=== PATIENT | female | born 1940 | race Caucasian/White ===

== ENCOUNTER 2016-10-28 12:23 | Emergency (ER) | payer OTHER ==
[~2016-10-28] VITALS: Ht 162.6 cm; Wt 73.5 kg
--- NOTE | 2016-10-28 13:12 | PHYS DOC ---
Past Medical History Past Medical History: COPD Past Surgical History: No Surgical History Alcohol Use: None Drug Use: None Adult General Chief Complaint Chief Complaint: MULTIPLE COMPLAINTS HPI HPI Patient is a 76 year old female who presents with shortness of breath and wheezing. She states pressure 2 weeks ago she felt she had influenza with body aches nonproductive cough. She states she feels short of breath when she lays flat and has a dry hacking cough. She denies any chest pain other than when she coughs she has a burning sensation. She denies any nausea vomiting or diarrhea. She has a history of smoking but stopped in 2008 and smoked 50 years prior to that. She states she's been told she might have COPD in the past. Review of Systems Review of Systems Constitutional: Denies fever or chills [] Eyes: Denies change in visual acuity, redness, or eye pain [] HENT: Denies nasal congestion or sore throat [] Respiratory: Positive for cough and shortness of breath [] Cardiovascular: No additional information not addressed in HPI [] GI: Denies abdominal pain, nausea, vomiting, bloody stools or diarrhea [] : Denies dysuria or hematuria [] Musculoskeletal: Denies back pain or joint pain [] Integument: Denies rash or skin lesions [] Neurologic: Denies headache, focal weakness or sensory changes [] Endocrine: Denies polyuria or polydipsia [] Current Medications Current Medications Current Medications Medications (Trade) Dose Ordered Sig/Vidal Start Time Stop Time Status Last Admin Dose Admin Albuterol/ Ipratropium (Duoneb) 3 ml 1X ONCE 10/28/16 13:45 10/28/16 13:46 DC 10/28/16 13:54 3 ML Methylprednisolone Sodium Succinate (Solu-Medrol 125mg Vial) 125 mg 1X ONCE 10/28/16 13:45 10/28/16 13:46 DC 10/28/16 14:25 125 MG Allergies Allergies Allergies Coded Allergies Type Severity Reaction Last Updated Verified sulfacetamide Adverse Reaction Intermediate N/V 10/28/16 Yes Physical Exam Physical Exam Constitutional: Well developed, well nourished, no acute distress, non-toxic appearance. [] HENT: Normocephalic, atraumatic, bilateral external ears normal, oropharynx moist, no oral exudates, nose normal. [] Eyes: PERRLA, EOMI, conjunctiva normal, no discharge. [] Neck: Normal range of motion, no tenderness, supple, no stridor. [] Cardiovascular:Heart rate regular rhythm, no murmur [] Lungs & Thorax: Bilateral breath sounds coarse with expiratory wheezing [] Abdomen: Bowel sounds normal, soft, no tenderness, no masses, no pulsatile masses. [] Skin: Warm, dry, no erythema, no rash. [] Back: No tenderness, no CVA tenderness. [] Extremities: No tenderness, no cyanosis, no clubbing, ROM intact, no edema. [] Neurologic: Alert and oriented X 3, normal motor function, normal sensory function, no focal deficits noted. [] Psychologic: Affect normal, judgement normal, mood normal. [] Current Patient Data Vital Signs Vital Signs Date Time Temp Pulse Resp B/P Pulse Ox O2 Delivery O2 Flow Rate FiO2 10/28/16 13:56 96 Room Air 10/28/16 12:55 98.1 64 19 167/82 98.1 Lab Values Laboratory Tests Test 10/28/16 14:00 10/28/16 14:05 Influenza Type A Antigen Negative (NEGATIVE) Influenza Type B Antigen Negative (NEGATIVE) White Blood Count 7.6x10^3/uL (4.0-11.0) Red Blood Count 5.09x10^6/uL (3.50-5.40) Hemoglobin 13.3g/dL (12.0-15.5) Hematocrit 40.2% (36.0-47.0) Mean Corpuscular Volume 79fL (79-100) Mean Corpuscular Hemoglobin 26pg (25-35) Mean Corpuscular Hemoglobin Concent 33g/dL (31-37) Red Cell Distribution Width 13.6% (11.5-14.5) Platelet Count 291x10^3/uL (140-400) Neutrophils (%) (Auto) 64% (31-73) Lymphocytes (%) (Auto) 23% (24-48) L Monocytes (%) (Auto) 13% (0-9) H Eosinophils (%) (Auto) 1% (0-3) Basophils (%) (Auto) 0% (0-3) Neutrophils # (Auto) 4.8x10^3uL (1.8-7.7) Lymphocytes # (Auto) 1.7x10^3/uL (1.0-4.8) Monocytes # (Auto) 0.9x10^3/uL (0.0-1.1) Eosinophils # (Auto) 0.0x10^3/uL (0.0-0.7) Basophils # (Auto) 0.0x10^3/uL (0.0-0.2) Prothrombin Time 12.5SEC (11.7-14.0) Prothrombin Time INR 1.0 (0.8-1.1) Sodium Level 145mmol/L (136-145) Potassium Level 4.1mmol/L (3.5-5.1) Chloride Level 105mmol/L (98-107) Carbon Dioxide Level 26mmol/L (21-32) Anion Gap 14 (6-14) Blood Urea Nitrogen 11mg/dL (7-20) Creatinine 0.9mg/dL (0.6-1.0) Estimated GFR (Cockcroft-Gault) 60.9 Glucose Level 90mg/dL (70-99) Calcium Level 9.2mg/dL (8.5-10.1) Magnesium Level 2.1mg/dL (1.8-2.4) Total Bilirubin 0.6mg/dL (0.2-1.0) Direct Bilirubin 0.1mg/dL (0.0-0.2) Aspartate Amino Transferase (AST) 17U/L (15-37) Alanine Aminotransferase (ALT) 23U/L (14-59) Alkaline Phosphatase 89U/L (46-116) Creatine Kinase 85U/L (26-192) Creatine Kinase MB (Mass) < 0.5ng/mL (0.0-3.6) Creatine Kinase MB Relative Index % (0-4) Troponin I Quantitative < 0.017ng/mL (0.000-0.055) SX-Feg-D-Type Natriuretic Peptide 448pg/mL (0-449) Total Protein 7.4g/dL (6.4-8.2) Albumin 3.5g/dL (3.4-5.0) Thyroid Stimulating Hormone (TSH) 7.331uIU/mL (0.358-3.74) H Laboratory Tests 10/28/16 14:05 Laboratory Tests 10/28/16 14:05 EKG EKG EKG shows sinus bradycardia with a rate of [address] elevations or T -wave inversions, left axis deviation, as interpreted by me. Radiology/Procedures Radiology/Procedures [facility] [address] [place] [address] IMAGING REPORT Signed PATIENT: DANIA PAREKH ACCOUNT: [id number] : 1940 LOCATION: ER AGE: 76 SEX: F EXAM STATUS: PRE ER ORD. PHYSICIAN: JACINDA BA MD REASON: cough, sick x 2 weeks PROCEDURE: PORTABLE CHEST 1V Portable chest, 10/28/2016: History: Cough The heart size and pulmonary vascularity are normal. There is mild tortuosity of the thoracic aorta. There is minimal scarring over the pulmonary apices. No acute infiltrate is seen. There is no evidence of pleural fluid. IMPRESSION: No acute cardiopulmonary abnormality is detected. DICTATED and SIGNED BY: KESHAWN VALLES MD DATE: 10/28/16 1327 CC: JACINDA BA MD ~ Impressions: OPD exacerbation Course & Med Decision Making Course & Med Decision Making Pertinent Labs and Imaging studies reviewed. (See chart for details) KG, chest x-ray labs show any acute abdomen amount is. She received 125 sodium Medrol duo nebs and feels better. We'll discharge home with a Z-Cesar, milligrams prednisone for 4 days and albuterol inhaler. Return precautions given she is agreeable plan being discharge with her stable condition at this time. Gabbie Disclaimer Gabbie Disclaimer This electronic medical record was generated, in whole or in part, using a voice recognition dictation system. Departure Departure Impression: Primary Impression: COPD (chronic obstructive pulmonary disease) Disposition: 01 HOME, SELF-CARE Condition: IMPROVED Patient Instructions: Shortness of Breath Additional Instructions: Your chest x-ray and labs do not show any acute abdomen allergies. Your being discharged home. You will need to take albuterol inhaler 1-2 puffs every 4-6 hours as needed for shortness of breath, prednisone 40 mg by mouth daily for the next 4 days. Please start this medicine tomorrow. In addition to being prescribed an antibiotic called in azithromycin please start taking this today as directed. Return the ER if you have worsening shortness of breath, fevers, chest discomfort or other concerns. He should follow up with primary care physician within the next few days. Your prescriptions been called into [facility] on [address] in [place]. JACINDA BA MD Oct 28, 2016 13:12
--- NOTE | 2016-10-28 13:32 | RAD ---
Portable chest, 10/28/2016: History: Cough The heart size and pulmonary vascularity are normal. There is mild tortuosity of the thoracic aorta. There is minimal scarring over the pulmonary apices. No acute infiltrate is seen. There is no evidence of pleural fluid. IMPRESSION: No acute cardiopulmonary abnormality is detected.
--- NOTE | 2016-10-28 13:43 | EKG ---
[facility] [address] [place] [address] Test Date: 2016-10-28 Test Time: 13:14:06 Pat Name: DANIA PAREKH Department: Room: Gender: F [employer]: : 1940 Requested By: JACINDA BA Order Number: [id number] Reading MD: Measurements Intervals [place] Rate: 59 P: 27 [place]: 160 QRS: -4 QRSD: 76 T: 17 QT: 452 QTc: 452 Interpretive Statements SINUS RHYTHM LEFTWARD AXIS OTHERWISE NORMAL ECG RI6.01 Unconfirmed report No previous ECG available for comparison
[2016-10-28] MEDS ORDERED: IPRATRPIUM/ALBUTEROL 0.5/2.5MG 3 ML NEBU. NEB ONE (13:45)
[2016-10-28] MEDS ORDERED: methylPREDNISolone SOD SUCC PF 125 MG/2 ML VIAL. IV ONE (13:45)
[2016-10-28 14:25] LABS: BASO % 0 % (0-3); EOS % 1 % (0-3); HEMATOCRIT 40.2 % (36.0-47.0); HEMOGLOBIN 13.3 g/dL (12.0-15.5); LYMPH # 1.7 x10^3/uL (1.0-4.8); LYMPH % 23 % (24-48); MEAN CORPUSCULAR HEMOGLOBIN 26 pg (25-35); MEAN CORPUSCULAR HGB CONC 33 g/dL (31-37); MEAN CORPUSCULAR VOLUME 79 fL (79-100); MONO % 13 % (0-9); NEUT % 64 % (31-73); PLATELET COUNT 291 x10^3/uL (140-400); RED BLOOD COUNT 5.09 x10^6/uL (3.50-5.40); RED CELL DISTRIBUTION WIDTH 13.6 % (11.5-14.5); WHITE BLOOD COUNT 7.6 x10^3/uL (4.0-11.0)
[2016-10-28 14:33] LABS: PROTHROMBIN TIME PATIENT 12.5 SEC (11.7-14.0)
[2016-10-28 14:36] LABS: CALCIUM 9.2 mg/dL (8.5-10.1); CREATININE 0.9 mg/dL (0.6-1.0); GFR 60.9; POTASSIUM 4.1 mmol/L (3.5-5.1)
[2016-10-28 14:41] LABS: ALBUMIN 3.5 g/dL (3.4-5.0); DIRECT BILIRUBIN 0.1 mg/dL (0.0-0.2); MAGNESIUM 2.1 mg/dL (1.8-2.4); TOTAL BILIRUBIN 0.6 mg/dL (0.2-1.0); TOTAL PROTEIN 7.4 g/dL (6.4-8.2)
[2016-10-28 14:42] LABS: OBC FLU VALID
[2016-10-28 14:53] LABS: CKMB MASS < 0.5 ng/mL (0.0-3.6); CREATINE KINASE 85 U/L (26-192)
[2016-10-28 16:26] VITALS: BP 136/65
== END 2016-10-28 16:28 | disposition home or self-care (01) ==
LOC: ER 12:23
DX: J44.9 Chronic obstructive pulmonary disease, unspecified (principal); Z88.1 Allergy status to other antibiotic agents; Z87.891 Personal history of nicotine dependence
CPT/HCPCS: 36415; 71010; 80048; 80076; 82550; 82553; 83735; 83880; 84443; 84484; 85027; 85610; 87804; 93005; 94250; 94640; 96374; 99285; J2930; J7620